=== PATIENT | female | born 1935 | race Caucasian/White ===

== ENCOUNTER 2021-11-15 21:08 | Inpatient (IN) ==
[2021-11-15 22:47] LABS: ABS Basophils 0.1 10^3/ul (0-0.2); ABS Eosinophils 0.1 10^3/ul (0-0.6); ABS Lymphocytes 1.8 10^3/ul (1.0-4.8); ABS Monocytes 0.9 10^3/ul (0-0.8); ABS Neutrophils 6.7 10^3/ul (1.5-7.7); Eosinophil % 0.6 %; Hematocrit 42 % (35-47); Hemoglobin 13.4 g/dL (12.0-16.0); Lymphocyte % 19.2 %; Mean Corpuscular HGB Conc 32 g/dL (31-36); Mean Corpuscular Hemoglobin 27 pg (27-31); Mean Corpuscular Volume 83 fL (80-97); Mean Platelet Volume 9.2 fL (7.4-10.4); Platelet Count 181 10^3/uL (150-450); Red Blood Count 5.02 10^6 /uL (3.70-4.87); Red Cell Distribution Width 21 % (10-15); White Blood Count 9.6 10^3/uL (3.5-10.8)
[2021-11-15 23:00] LABS: INR 2.25 (0.86-1.15)
[2021-11-15 23:22] LABS: Albumin 3.2 g/dL (3.2-5.2); Albumin/Globulin Ratio 1.3 (1-3); C Reactive Protein 1.37 mg/L (<8.01); Calcium 8.8 mg/dL (8.6-10.3); Globulin 2.4 g/dL (2-4); Potassium 4.1 mmol/L (3.5-5.0); Total Bilirubin 0.4 mg/dL (0.2-1.0); Total Protein 5.6 g/dL (6.4-8.9); eGFR CKD-EPI 54.2 (>60)
[2021-11-15] MEDS ORDERED: Furosemide 40 mg/4 ml IV VIAL IV SLOW PU ONE (23:29)
[2021-11-16 00:51] LABS: High Sensitivity Troponin 1 Hr 19 pg/mL (<15)
[2021-11-16 01:33] LABS: TSH Ultra Thyroid Stim Horm 0.98 mcIU/mL (0.34-5.60)
[2021-11-16 06:10] LABS: ABS Basophils 0.1 10^3/ul (0-0.2); ABS Eosinophils 0.1 10^3/ul (0-0.6); ABS Lymphocytes 2.2 10^3/ul (1.0-4.8); ABS Neutrophils 6.5 10^3/ul (1.5-7.7); Eosinophil % 0.6 %; Hematocrit 42 % (35-47); Hemoglobin 13.8 g/dL (12.0-16.0); Lymphocyte % 22.7 %; Mean Corpuscular HGB Conc 33 g/dL (31-36); Mean Corpuscular Hemoglobin 27 pg (27-31); Mean Corpuscular Volume 83 fL (80-97); Mean Platelet Volume 9.5 fL (7.4-10.4); Platelet Count 181 10^3/uL (150-450); Red Blood Count 5.05 10^6 /uL (3.70-4.87); Red Cell Distribution Width 21 % (10-15); White Blood Count 9.9 10^3/uL (3.5-10.8)
[2021-11-16 06:25] LABS: eGFR CKD-EPI 52.9 (>60)
[2021-11-16] MEDS: Aspirin EC 81 mg TAB.EC (enteric coated) PO SCH (08:18)
[2021-11-16] MEDS ORDERED: Furosemide 20 mg/2 ml IV VIAL IV SLOW PU ONE (14:00)
[2021-11-16] MEDS ORDERED: Dextrose 50% Syringe 50 ml 25 GM/50 ML SYRINGE IV PUSH PRN (19:05)
[2021-11-16] MEDS: Pravastatin 20 mg TAB (NF) PO SCH (20:11)
[2021-11-17 05:55] LABS: Calcium 8.7 mg/dL (8.6-10.3); Magnesium 1.7 mg/dL (1.9-2.7); Potassium 4.4 mmol/L (3.5-5.0)
[2021-11-17 06:01] LABS: eGFR CKD-EPI 32.8 (>60)
[2021-11-17] MEDS: Aspirin EC 81 mg TAB.EC (enteric coated) PO SCH (09:17)
[2021-11-17 12:21] LABS: High Sensitivity Troponin 1 Hr 20 pg/mL (<15)
[2021-11-17] MEDS ORDERED: Furosemide 40 mg/4 ml IV VIAL IV SLOW PU ONE (15:21)
[2021-11-17] MEDS: Ondansetron 4 mg VIAL 2 MG/ML 2 ml VIAL IV PRN (17:33)
[2021-11-17] MEDS: Pravastatin 20 mg TAB (NF) PO SCH (21:11)
[2021-11-18 07:41] LABS: Calcium 8.8 mg/dL (8.6-10.3); Magnesium 1.9 mg/dL (1.9-2.7); Potassium 4.8 mmol/L (3.5-5.0)
[2021-11-18 07:47] LABS: eGFR CKD-EPI 31.8 (>60)
[2021-11-18] MEDS: Furosemide 40 mg/4 ml IV VIAL IV SLOW PU SCH (07:55)
[2021-11-18] MEDS: Aspirin EC 81 mg TAB.EC (enteric coated) PO SCH (07:55)
[2021-11-18] MEDS: Ondansetron 4 mg VIAL 2 MG/ML 2 ml VIAL IV PRN ×2 (09:13→19:27)
[2021-11-18] MEDS ORDERED: Furosemide 40 mg/4 ml IV VIAL IV SLOW PU ONE (18:49)
[2021-11-18] MEDS: Pravastatin 20 mg TAB (NF) PO SCH (20:53)
[2021-11-19] MEDS: Furosemide 40 mg/4 ml IV VIAL IV SLOW PU SCH (08:36)
[2021-11-19] MEDS: Aspirin EC 81 mg TAB.EC (enteric coated) PO SCH (08:38)
[2021-11-19 09:04] LABS: ABS Eosinophils 0.1 10^3/ul (0-0.6); ABS Lymphocytes 2.7 10^3/ul (1.0-4.8); ABS Monocytes 1.3 10^3/ul (0-0.8); ABS Neutrophils 10.5 10^3/ul (1.5-7.7); Eosinophil % 0.5 %; Hematocrit 42 % (35-47); Hemoglobin 13.4 g/dL (12.0-16.0); Lymphocyte % 18.4 %; Mean Corpuscular HGB Conc 32 g/dL (31-36); Mean Corpuscular Hemoglobin 28 pg (27-31); Mean Corpuscular Volume 86 fL (80-97); Mean Platelet Volume 9.1 fL (7.4-10.4); Nucleated Red Blood Cells % 0.1; Platelet Count 171 10^3/uL (150-450); Red Blood Count 4.87 10^6 /uL (3.70-4.87); Red Cell Distribution Width 21 % (10-15); White Blood Count 14.5 10^3/uL (3.5-10.8)
[2021-11-19 09:19] LABS: CO2 Carbon Dioxide 24 mmol/L (22-32); Calcium 8.6 mg/dL (8.6-10.3); Chloride 98 mmol/L (101-111); Sodium 131 mmol/L (135-145)
[2021-11-19 09:25] LABS: Blood Urea Nitrogen 37 mg/dL (6-24); Glucose 149 mg/dL (70-100); eGFR CKD-EPI 28.3 (>60)
[2021-11-19 10:22] LABS: Anion Gap 9 mmol/L (2-11)
[2021-11-19] MEDS: Pravastatin 20 mg TAB (NF) PO SCH (20:31)
[2021-11-20] MEDS ORDERED: Piperacillin/Tazobac ADVAN 3.375 GM in NS 0.9% 100 ml BAG 100 ML IV ONE (03:52)
[2021-11-20 04:39] LABS: Hematocrit 41 % (35-47); Hemoglobin 13.3 g/dL (12.0-16.0); Mean Corpuscular HGB Conc 33 g/dL (31-36); Mean Corpuscular Hemoglobin 28 pg (27-31); Mean Corpuscular Volume 84 fL (80-97); Mean Platelet Volume 9.6 fL (7.4-10.4); Platelet Count 169 10^3/uL (150-450); Red Blood Count 4.83 10^6 /uL (3.70-4.87); Red Cell Distribution Width 20 % (10-15); White Blood Count 11.7 10^3/uL (3.5-10.8)
[2021-11-20 04:50] LABS: Calcium 8.6 mg/dL (8.6-10.3); Potassium 4.8 mmol/L (3.5-5.0)
[2021-11-20 07:36] LABS: Urine Appearance Turbid; Urine Bilirubin Negative (Negative); Urine Blood 2+ (Negative); Urine Color Yellow; Urine Glucose Negative (Negative); Urine Ketones Negative (Negative); Urine Nitrite Negative (Negative); Urine Protein Negative (Negative); Urine Urobilinogen Negative (Negative)
[2021-11-20 07:43] LABS: Urine Bacteria 1+ (Absent); Urine Red Blood Cell 3+(>10/hpf) (Absent); Urine Squamous Epithelial Cell Present (Absent); Urine Transitional Epithelial Present (Absent); Urine White Blood Cell 3+(>20/hpf) (Absent); Urine Yeast Present (Absent)
[2021-11-20] MEDS: Aspirin EC 81 mg TAB.EC (enteric coated) PO SCH (09:57)
[2021-11-20] MEDS: Pravastatin 20 mg TAB (NF) PO SCH (21:29)
[2021-11-21 06:05] LABS: ABS Eosinophils 0.1 10^3/ul (0-0.6); ABS Lymphocytes 2.2 10^3/ul (1.0-4.8); ABS Neutrophils 7.4 10^3/ul (1.5-7.7); Eosinophil % 0.6 %; Hematocrit 41 % (35-47); Lymphocyte % 20.8 %; Mean Corpuscular HGB Conc 31 g/dL (31-36); Mean Corpuscular Hemoglobin 27 pg (27-31); Mean Corpuscular Volume 87 fL (80-97); Mean Platelet Volume 9.1 fL (7.4-10.4); Nucleated Red Blood Cells % 0.2; Platelet Count 154 10^3/uL (150-450); Red Blood Count 4.75 10^6 /uL (3.70-4.87); Red Cell Distribution Width 21 % (10-15); White Blood Count 10.7 10^3/uL (3.5-10.8)
[2021-11-21 06:36] LABS: CO2 Carbon Dioxide 23 mmol/L (22-32); Calcium 8.4 mg/dL (8.6-10.3); Chloride 100 mmol/L (101-111); Sodium 133 mmol/L (135-145)
[2021-11-21 06:41] LABS: Blood Urea Nitrogen 38 mg/dL (6-24); Glucose 129 mg/dL (70-100); eGFR CKD-EPI 35.9 (>60)
[2021-11-21 07:38] LABS: Anion Gap 10 mmol/L (2-11)
[2021-11-21] MEDS: Aspirin EC 81 mg TAB.EC (enteric coated) PO SCH (09:55)
[2021-11-21] MEDS ORDERED: Senna TAB 8.6 mg TAB PO PRN (10:13)
[2021-11-21] MEDS ORDERED: Magnesium Hydroxide LIQ 30 ML UDC PO SCH (11:00)
[2021-11-21] MEDS ORDERED: Polyethylene Glycol 3350 17 GM PACKET PO SCH (11:00)
[2021-11-21 13:17] VITALS: BP 121/54
== END 2021-11-21 17:10 | disposition home health service (06) | DRG 291 ==
LOC: EDHOLD 21:08 → ED 21:08 → SUATTDRO 11-16 00:53 → MEDTELE 11-16 02:53
PROVIDERS: ADMIT Internal Medicine; ATTEND Hospitalist

== ENCOUNTER 2021-11-23 13:55 | Inpatient (IN) ==
[2021-11-23 14:51] LABS: ABS Basophils 0.1 10^3/ul (0-0.2); ABS Lymphocytes 2.1 10^3/ul (1.0-4.8); ABS Monocytes 1.1 10^3/ul (0-0.8); ABS Neutrophils 7.7 10^3/ul (1.5-7.7); Eosinophil % 0.3 %; Hematocrit 39 % (35-47); Hemoglobin 12.4 g/dL (12.0-16.0); Lymphocyte % 18.9 %; Mean Corpuscular HGB Conc 32 g/dL (31-36); Mean Corpuscular Hemoglobin 27 pg (27-31); Mean Corpuscular Volume 84 fL (80-97); Mean Platelet Volume 9.2 fL (7.4-10.4); Platelet Count 205 10^3/uL (150-450); Red Blood Count 4.59 10^6 /uL (3.70-4.87); Red Cell Distribution Width 21 % (10-15)
[2021-11-23] MEDS ORDERED: Lactated Ringers 1000 ml BAG 1,000 ML IV ONE (15:30)
[2021-11-23 15:35] LABS: Albumin 3.1 g/dL (3.2-5.2); Albumin/Globulin Ratio 1.3 (1-3); Calcium 8.9 mg/dL (8.6-10.3); Globulin 2.4 g/dL (2-4); Total Bilirubin 0.3 mg/dL (0.2-1.0); Total Protein 5.5 g/dL (6.4-8.9); eGFR CKD-EPI 36.5 (>60)
[2021-11-23] MEDS ORDERED: Iodixanol (CONTRAST) 320 MG/ML 100 ML SDV IV ONE (17:09)
[2021-11-23] MEDS ORDERED: Piperacillin/Tazobac ADVAN 3.375 GM in NS 0.9% 100 ml BAG 100 ML IV ONE (19:15)
[2021-11-23] MEDS ORDERED: NS 0.9% 1000 ml BAG 1,000 ML IV SCH (20:00)
[2021-11-23] MEDS ORDERED: Zosyn per Pharmacy NOTE FOLLOW UP SCH (20:00)
[2021-11-23] MEDS ORDERED: cefTRIAXone 1 gm/50 mL D5W 1 GM/50 ML BAG IV ONE (21:00)
[2021-11-23] MEDS ORDERED: metroNIDAZOLE IV 500 MG/100ML - ED ONCE IVPB ONE (21:30)
[2021-11-24] MEDS: Pravastatin 20 mg TAB (NF) PO SCH ×2 (00:29→20:13)
[2021-11-24] MEDS: metroNIDAZOLE IV 500 MG/100ML 500 MG/100 ML BAG IVPB SCH ×3 (05:20→22:16)
[2021-11-24 06:08] LABS: Hematocrit 41 % (35-47); Hemoglobin 12.7 g/dL (12.0-16.0); Mean Corpuscular HGB Conc 31 g/dL (31-36); Mean Corpuscular Hemoglobin 28 pg (27-31); Mean Corpuscular Volume 89 fL (80-97); Mean Platelet Volume 9.6 fL (7.4-10.4); Platelet Count 194 10^3/uL (150-450); Red Blood Count 4.62 10^6 /uL (3.70-4.87); Red Cell Distribution Width 22 % (10-15)
[2021-11-24 06:13] LABS: Albumin/Globulin Ratio 1.2 (1-3); Calcium 8.6 mg/dL (8.6-10.3); Globulin 2.5 g/dL (2-4); Magnesium 2.2 mg/dL (1.9-2.7); Potassium 4.3 mmol/L (3.5-5.0); Total Bilirubin 0.3 mg/dL (0.2-1.0); Total Protein 5.5 g/dL (6.4-8.9); eGFR CKD-EPI 44.4 (>60)
[2021-11-24] MEDS: Polyethylene Glycol 3350 17 GM PACKET PO SCH (08:36)
[2021-11-24] MEDS ORDERED: cefTRIAXone 1 gm/50 mL D5W 1 GM/50 ML BAG IV SCH (21:00)
[2021-11-24] MEDS: Ondansetron 4 mg VIAL 2 MG/ML 2 ml VIAL IV PRN (22:15)
[2021-11-25] MEDS: metroNIDAZOLE IV 500 MG/100ML 500 MG/100 ML BAG IVPB SCH ×2 (05:46→14:38)
[2021-11-25] MEDS: Psyllium PAK PO SCH (08:48)
[2021-11-25] MEDS: Polyethylene Glycol 3350 17 GM PACKET PO SCH (08:49)
[2021-11-25 08:58] LABS: ABS Basophils 0.1 10^3/ul (0-0.2); ABS Eosinophils 0.1 10^3/ul (0-0.6); ABS Lymphocytes 1.6 10^3/ul (1.0-4.8); ABS Monocytes 0.8 10^3/ul (0-0.8); ABS Neutrophils 7.7 10^3/ul (1.5-7.7); Eosinophil % 0.9 %; Hematocrit 40 % (35-47); Hemoglobin 12.7 g/dL (12.0-16.0); Lymphocyte % 15.2 %; Mean Corpuscular HGB Conc 32 g/dL (31-36); Mean Corpuscular Hemoglobin 27 pg (27-31); Mean Corpuscular Volume 85 fL (80-97); Mean Platelet Volume 8.9 fL (7.4-10.4); Platelet Count 217 10^3/uL (150-450); Red Blood Count 4.67 10^6 /uL (3.70-4.87); Red Cell Distribution Width 20 % (10-15); White Blood Count 10.2 10^3/uL (3.5-10.8)
[2021-11-25 09:55] LABS: Blood Urea Nitrogen 22 mg/dL (6-24); CO2 Carbon Dioxide 34 mmol/L (22-32); Calcium 8.8 mg/dL (8.6-10.3); Chloride 102 mmol/L (101-111); Glucose 121 mg/dL (70-100); Sodium 140 mmol/L (135-145); eGFR CKD-EPI 43.5 (>60)
[2021-11-25 10:00] LABS: Anion Gap 4 mmol/L (2-11)
[2021-11-25] MEDS: Ondansetron 4 mg VIAL 2 MG/ML 2 ml VIAL IV PRN (15:49)
[2021-11-25] MEDS: Heparin 5000 UNITS/ML 1 mL VIAL SUBCUT SCH (22:21)
[2021-11-25] MEDS: Pravastatin 20 mg TAB (NF) PO SCH (22:22)
[2021-11-26] MEDS: Heparin 5000 UNITS/ML 1 mL VIAL SUBCUT SCH ×3 (06:23→21:26)
[2021-11-26 06:37] LABS: ABS Basophils 0.1 10^3/ul (0-0.2); ABS Eosinophils 0.2 10^3/ul (0-0.6); ABS Lymphocytes 2.2 10^3/ul (1.0-4.8); ABS Monocytes 0.8 10^3/ul (0-0.8); Eosinophil % 1.7 %; Hematocrit 40 % (35-47); Hemoglobin 12.8 g/dL (12.0-16.0); Lymphocyte % 23.9 %; Mean Corpuscular HGB Conc 32 g/dL (31-36); Mean Corpuscular Hemoglobin 27 pg (27-31); Mean Corpuscular Volume 86 fL (80-97); Platelet Count 197 10^3/uL (150-450); Red Blood Count 4.67 10^6 /uL (3.70-4.87); Red Cell Distribution Width 21 % (10-15); White Blood Count 9.3 10^3/uL (3.5-10.8)
[2021-11-26 07:11] LABS: Calcium 8.6 mg/dL (8.6-10.3); Potassium 4.4 mmol/L (3.5-5.0); eGFR CKD-EPI 37.1 (>60)
[2021-11-26] MEDS: Polyethylene Glycol 3350 17 GM PACKET PO SCH (08:52)
[2021-11-26] MEDS: Psyllium PAK PO SCH (08:54)
[2021-11-26] MEDS ORDERED: Lactated Ringers 500 ml BAG 500 ML IV SCH ×2 (13:00→13:55)
[2021-11-26] MEDS ORDERED: Lactated Ringers 1000 ml BAG 500 ML IV SCH (15:00)
[2021-11-26] MEDS: Pravastatin 20 mg TAB (NF) PO SCH (21:26)
[2021-11-27] MEDS: Heparin 5000 UNITS/ML 1 mL VIAL SUBCUT SCH ×3 (05:34→22:04)
[2021-11-27 06:29] LABS: Calcium 8.4 mg/dL (8.6-10.3); Potassium 4.7 mmol/L (3.5-5.0)
[2021-11-27 06:35] LABS: eGFR CKD-EPI 36.5 (>60)
[2021-11-27] MEDS: Polyethylene Glycol 3350 17 GM PACKET PO SCH (08:14)
[2021-11-27] MEDS: Psyllium PAK PO SCH (08:15)
[2021-11-27] MEDS ORDERED: Vancomycin per Pharmacy 1 EA NOTE FOLLOW UP PRN (08:51)
[2021-11-27] MEDS ORDERED: Vancomycin 1,000 MG in NS 0.9% 250 ml 250 ML IVPB ONE (09:00)
[2021-11-27] MEDS ORDERED: Saline NASAL SPRAY 0.65% BTL BOTH NARES PRN (10:12)
[2021-11-27] MEDS: cefTAZidime (*) 2 GM in NS 0.9% 100 ml BAG 100 ML IVPB SCH (11:02)
[2021-11-27] MEDS: Furosemide 40 mg/4 ml IV VIAL IV SLOW PU SCH ×3 (12:26→19:11)
[2021-11-27] MEDS: Pravastatin 20 mg TAB (NF) PO SCH (22:05)
[2021-11-28 05:18] LABS: ABS Eosinophils 0.1 10^3/ul (0-0.6); ABS Lymphocytes 1.5 10^3/ul (1.0-4.8); ABS Monocytes 0.9 10^3/ul (0-0.8); ABS Neutrophils 8.6 10^3/ul (1.5-7.7); Eosinophil % 1.1 %; Hematocrit 42 % (35-47); Hemoglobin 12.5 g/dL (12.0-16.0); Lymphocyte % 13.7 %; Mean Corpuscular HGB Conc 30 g/dL (31-36); Mean Corpuscular Hemoglobin 27 pg (27-31); Mean Corpuscular Volume 91 fL (80-97); Mean Platelet Volume 9.4 fL (7.4-10.4); Nucleated Red Blood Cells % 0.2; Platelet Count 135 10^3/uL (150-450); Red Blood Count 4.65 10^6 /uL (3.70-4.87); Red Cell Distribution Width 21 % (10-15); White Blood Count 11.2 10^3/uL (3.5-10.8)
[2021-11-28 05:27] LABS: CO2 Carbon Dioxide 19 mmol/L (22-32); Calcium 8.4 mg/dL (8.6-10.3); Chloride 102 mmol/L (101-111); Sodium 132 mmol/L (135-145)
[2021-11-28] MEDS: Heparin 5000 UNITS/ML 1 mL VIAL SUBCUT SCH ×3 (05:28→20:31)
[2021-11-28 05:33] LABS: Blood Urea Nitrogen 22 mg/dL (6-24); Glucose 108 mg/dL (70-100); eGFR CKD-EPI 35.9 (>60)
[2021-11-28 05:39] LABS: Anion Gap 11 mmol/L (2-11)
[2021-11-28] MEDS: Polyethylene Glycol 3350 17 GM PACKET PO SCH (08:08)
[2021-11-28] MEDS: Psyllium PAK PO SCH (08:08)
[2021-11-28] MEDS: Furosemide 40 mg/4 ml IV VIAL IV SLOW PU SCH (09:10)
[2021-11-28] MEDS ORDERED: Vancomycin 750 MG in NS 0.9% 250 ML IVPB SCH (10:00)
[2021-11-28] MEDS: cefTAZidime (*) 2 GM in NS 0.9% 100 ml BAG 100 ML IVPB SCH (10:17)
[2021-11-28] MEDS: Pravastatin 20 mg TAB (NF) PO SCH (20:31)
[2021-11-29 05:35] LABS: Calcium 8.5 mg/dL (8.6-10.3); Potassium 4.5 mmol/L (3.5-5.0); eGFR CKD-EPI 38.8 (>60)
[2021-11-29] MEDS: Heparin 5000 UNITS/ML 1 mL VIAL SUBCUT SCH ×3 (06:09→20:46)
[2021-11-29] MEDS: Aspirin EC 81 mg TAB.EC (enteric coated) PO SCH (09:28)
[2021-11-29] MEDS: Polyethylene Glycol 3350 17 GM PACKET PO SCH (09:31)
[2021-11-29] MEDS: Psyllium PAK PO SCH (09:31)
[2021-11-29] MEDS ORDERED: COVID-19 VACCINE, MRNA(MODERNA)/PF 100 MCG/0.5 ML IM ONE (14:00)
[2021-11-29] MEDS: Pravastatin 20 mg TAB (NF) PO SCH (20:46)
[2021-11-30] MEDS: Heparin 5000 UNITS/ML 1 mL VIAL SUBCUT SCH ×3 (05:31→20:05)
[2021-11-30] MEDS ORDERED: Vancomycin Trough Check NOTE FOLLOW UP ONE (09:30)
[2021-11-30 09:32] LABS: ABS Basophils 0.1 10^3/ul (0-0.2); ABS Eosinophils 0.1 10^3/ul (0-0.6); ABS Lymphocytes 1.7 10^3/ul (1.0-4.8); ABS Monocytes 0.9 10^3/ul (0-0.8); Eosinophil % 1.3 %; Hematocrit 37 % (35-47); Hemoglobin 11.8 g/dL (12.0-16.0); Lymphocyte % 17.2 %; Mean Corpuscular HGB Conc 32 g/dL (31-36); Mean Corpuscular Hemoglobin 27 pg (27-31); Mean Corpuscular Volume 85 fL (80-97); Mean Platelet Volume 8.9 fL (7.4-10.4); Platelet Count 230 10^3/uL (150-450); Red Blood Count 4.38 10^6 /uL (3.70-4.87); Red Cell Distribution Width 20 % (10-15); White Blood Count 9.9 10^3/uL (3.5-10.8)
[2021-11-30] MEDS: Aspirin EC 81 mg TAB.EC (enteric coated) PO SCH (09:54)
[2021-11-30] MEDS: Polyethylene Glycol 3350 17 GM PACKET PO SCH (09:59)
[2021-11-30] MEDS: Psyllium PAK PO SCH (09:59)
[2021-11-30 10:05] LABS: Calcium 8.8 mg/dL (8.6-10.3); Potassium 4.6 mmol/L (3.5-5.0); Vancomycin Trough 8.5 mcg/mL; eGFR CKD-EPI 38.1 (>60)
[2021-11-30] MEDS: Pravastatin 20 mg TAB (NF) PO SCH (19:58)
[2021-11-30] MEDS ORDERED: Furosemide 20 mg/2 ml IV VIAL IV ONE (20:29)
[2021-12-01] MEDS: Heparin 5000 UNITS/ML 1 mL VIAL SUBCUT SCH ×3 (06:17→21:57)
[2021-12-01 06:22] LABS: eGFR CKD-EPI 30.8 (>60)
[2021-12-01] MEDS: Aspirin EC 81 mg TAB.EC (enteric coated) PO SCH (09:12)
[2021-12-01] MEDS: Psyllium PAK PO SCH (09:14)
[2021-12-01] MEDS: Polyethylene Glycol 3350 17 GM PACKET PO SCH (09:14)
[2021-12-01] MEDS: Pravastatin 20 mg TAB (NF) PO SCH (20:29)
[2021-12-02] MEDS: Heparin 5000 UNITS/ML 1 mL VIAL SUBCUT SCH ×3 (05:26→20:22)
[2021-12-02] MEDS: Aspirin EC 81 mg TAB.EC (enteric coated) PO SCH (08:15)
[2021-12-02] MEDS: Polyethylene Glycol 3350 17 GM PACKET PO SCH (08:19)
[2021-12-02] MEDS: Psyllium PAK PO SCH (08:20)
[2021-12-02] MEDS ORDERED: Furosemide 20 mg/2 ml IV VIAL IV ONE (11:51)
[2021-12-02 15:39] LABS: Rapid COVID-19 Molecular Undetected (Undetected)
[2021-12-02] MEDS: Pravastatin 20 mg TAB (NF) PO SCH (20:22)
[2021-12-02] MEDS: Ondansetron 4 mg VIAL 2 MG/ML 2 ml VIAL IV PRN (21:21)
[2021-12-03] MEDS: Heparin 5000 UNITS/ML 1 mL VIAL SUBCUT SCH (04:54)
[2021-12-03 07:58] VITALS: BP 120/50
[2021-12-03] MEDS: Aspirin EC 81 mg TAB.EC (enteric coated) PO SCH (08:57)
[2021-12-03] MEDS: Psyllium PAK PO SCH (09:01)
[2021-12-03] MEDS: Polyethylene Glycol 3350 17 GM PACKET PO SCH (09:01)
== END 2021-12-03 12:20 | DRG 393 ==
LOC: MED 13:55 → ED 13:55 → SUATTDRO 21:40 → OBSVTOIN 21:40 → MED 22:17
PROVIDERS: ADMIT Internal Medicine; ATTEND Internal Medicine